=== PATIENT | male | born 1980 | race Caucasian/White ===

== ENCOUNTER 2020-10-24 12:58 | Emergency (ER) | payer OTHER, BC ==
[~2020-10-24] VITALS: Ht 177.8 cm; Wt 115.0 kg
--- NOTE | 2020-10-24 13:48 | RAD ---
AP and Lateral Views of the Chest 10/24/2020 1:25 PM Indication: Reason: SOA - COVID + / Comparison: Chest radiograph October 31, 2010 Findings: There is a large masslike consolidation in projecting over the expected region of the right middle lobe. No pneumothorax or definitive effusion is seen. No acute osseous changes are identified . IMPRESSION: Large masslike consolidation projecting over the expected region of the right middle lobe . Contrast-enhanced CT chest recommended for further evaluation Electronically signed by: Pascual Kessler MD (10/24/2020 1:45 PM) [id number]
[2020-10-24] MEDS ORDERED: IOHEXOL 300 MG/ML 75 ML VIAL. IV ONE (14:00)
[2020-10-24] MEDS ORDERED: CONTRAST GIVEN. MC PRN (14:15)
[2020-10-24 14:29] LABS: BASO % 0 % (0-3); EOS % 0 % (0-3); HEMATOCRIT 49.9 % (39.0-53.0); HEMOGLOBIN 16.7 g/dL (13.0-17.5); LYMPH # 1.1 x10^3/uL (1.0-4.8); LYMPH % 15 % (24-48); MEAN CORPUSCULAR HEMOGLOBIN 29 pg (25-35); MEAN CORPUSCULAR HGB CONC 33 g/dL (31-37); MEAN CORPUSCULAR VOLUME 86 fL (79-100); MONO # 0.6 x10^3/uL (0.0-1.1); MONO % 8 % (0-9); NEUT # 5.9 x10^3uL (1.8-7.7); NEUT % 77 % (31-73); PLATELET COUNT 129 x10^3/uL (140-400); RED CELL DISTRIBUTION WIDTH 13.1 % (11.5-14.5); WHITE BLOOD COUNT 7.7 x10^3/uL (4.0-11.0)
[2020-10-24 14:37] LABS: CREATININE 1.3 mg/dL (0.7-1.3); GFR 61.8
[2020-10-24] MEDS ORDERED: IV NORMAL SALINE 1,000ML 1,000 ML IV ONE (15:00)
--- NOTE | 2020-10-24 15:08 | RAD ---
CT THORAX W History: Reason: rt lung chest mass, covid +, cough, short of air. 75mls omni 300 / Spl. Instructions : / History: Comparison: Chest x-ray 10/24/2020. Technique: CTA of the pulmonary arteries with intravenous contrast. 3-D multiplanar reconstruction is provided. Findings: Pulmonary arteries: No pulmonary embolism. Aorta and great vessels: No aneurysm or dissection of the aortic arch or thoracic aorta is seen. Thyroid: No significant abnormalities. Mediastinum and maura: Large anterior right mediastinal fat collection with vessels tracking back to t he abdomen protruding through a anterior diaphragmatic hernia (Morgagni). The hernia sac measures yaw roximately 15 x 11 x 14 cm with neck at the anterior diaphragm 8.3 x 3.0 cm. A tiny portion of the tr ansverse colon is present at the base of the hernia. Esophagus: The visualized esophagus is normal. Heart: The heart is normal in size. There is no pericardial effusion. Airways, Lungs, Pleura: Clear airways. Bilateral patchy nodular groundglass opacities. No pleural eff usion or pneumothorax. Right middle and upper lobe volume loss with atelectasis/scarring adjacent to large right anterior hernia. Upper abdomen: No acute findings. Osseous structures and soft tissues: Within normal limits for age. Impression: 1. No pulmonary embolism, aortic aneurysm or aortic dissection. 2. Multifocal patchy nodular groundglass opacities compatible with diffuse Covid pneumonia. 3. 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 ------ Exposure: One or more of the following individualized dose reduction techniques were utilized for thi s examination: 1. Automated exposure control 2. Adjustment of the mA and/or kV according to patient size 3. Use of iterative reconstruction technique. Electronically signed by: Romaine Caraballo MD (10/24/2020 3:06 PM) [id number]
--- NOTE | 2020-10-24 15:08 | PHYS DOC ---
Past History Past Surgical History: No Surgical History Adult General Chief Complaint Chief Complaint: SHORTNESS OF BREATH HPI HPI Patient is a 40-year-old male presenting for shortness of breath. Patient reports he had close contact to a known Covid positive individual last week and subsequently got tested 6 days ago at which time he found out he too was positive. Reports he was asymptomatic until 4 days ago when he started developing URI symptoms and shortness of breath. Reports he has history of known abdominal/diaphragmatic hernia for which she takes Protonix and is on an SSRI for mental health issues. He is not vaccinated against COVID-19 because his told him not to get it Review of Systems Review of Systems Fourteen body systems of review of systems have been reviewed. See HPI for pertinent positives and negative responses, other harrison all other systems are negative, non-pertinent or non-contributory Current Medications Current Medications Current Medications Medications (Trade) Dose Ordered Sig/Jose De Jesus Start Time Stop Time Status Last Admin Dose Admin Info (Do NOT chart on this entry -- for MONITORING) 1 each PRN DAILY PRN 10/24/20 14:15 10/26/20 14:14 Iohexol (Omnipaque 300 Mg/ml) 75 ml 1X ONCE 10/24/20 14:00 10/24/20 14:04 DC 10/24/20 14:30 75 ML Sodium Chloride 1,000 ml @ 1,000 mls/hr 1X ONCE 10/24/20 15:00 10/24/20 15:59 UNV Allergies Allergies Allergies Coded Allergies Type Severity Reaction Last Updated Verified amoxicillin Allergy Unknown 10/24/20 Yes Physical Exam Physical Exam Constitutional: Age-appropriate in no acute distress but does appear uncomfortable HENT: Normocephalic, atraumatic, bilateral external ears normal, oropharynx moist, no oral exudates, nose normal. Eyes: PERRLA, EOMI, conjunctiva normal, no discharge. Neck: Normal range of motion, no tenderness, supple, no stridor. Cardiovascular: Heart rate tachycardic, sinus rhythm, no murmurs rubs or gallops Lungs & Thorax: No acute respiratory distress, no accessory muscle use or abdominal retractions noted, speaking in full sentences without issue, there are gross crackles and rhonchi present in right lower lobe on auscultation Abdomen: Bowel sounds normal, soft, no tenderness, no masses, no pulsatile masses. Nonsurgical abdomen, no peritoneal signs Skin: Warm, dry, no erythema, no rash. Back: No tenderness, no CVA tenderness. Extremities: No tenderness, no cyanosis, no clubbing, ROM intact, no edema. Neurologic: Alert and oriented X 3, grossly normal motor & sensory function, no focal deficits noted. Psychologic: Affect normal, judgement normal, mood normal. Current Patient Data Vital Signs Vital Signs Date Time Temp Pulse Resp B/P (MAP) Pulse Ox O2 Delivery O2 Flow Rate FiO2 10/24/20 13:08 100.6 121 20 141/88 93 Room Air Lab Results Laboratory Tests Test 10/24/20 13:51 White Blood Count 7.7 x10^3/uL (4.0-11.0) Red Blood Count 5.80 x10^6/uL (4.30-5.70) H Hemoglobin 16.7 g/dL (13.0-17.5) Hematocrit 49.9 % (39.0-53.0) Mean Corpuscular Volume 86 fL (79-100) Mean Corpuscular Hemoglobin 29 pg (25-35) Mean Corpuscular Hemoglobin Concent 33 g/dL (31-37) Red Cell Distribution Width 13.1 % (11.5-14.5) Platelet Count 129 x10^3/uL (140-400) L Neutrophils (%) (Auto) 77 % (31-73) H Lymphocytes (%) (Auto) 15 % (24-48) L Monocytes (%) (Auto) 8 % (0-9) Eosinophils (%) (Auto) 0 % (0-3) Basophils (%) (Auto) 0 % (0-3) Neutrophils # (Auto) 5.9 x10^3uL (1.8-7.7) Lymphocytes # (Auto) 1.1 x10^3/uL (1.0-4.8) Monocytes # (Auto) 0.6 x10^3/uL (0.0-1.1) Eosinophils # (Auto) 0.0 x10^3/uL (0.0-0.7) Basophils # (Auto) 0.0 x10^3/uL (0.0-0.2) Sodium Level 134 mmol/L (136-145) L Potassium Level 4.0 mmol/L (3.5-5.1) Chloride Level 101 mmol/L (98-107) Carbon Dioxide Level 27 mmol/L (21-32) Anion Gap 6 (6-14) Blood Urea Nitrogen 17 mg/dL (8-26) Creatinine 1.3 mg/dL (0.7-1.3) Estimated GFR (Cockcroft-Gault) 61.8 Glucose Level 105 mg/dL (70-99) H Calcium Level 8.0 mg/dL (8.5-10.1) L EKG EKG EKG ordered and interpreted by myself at 1644 hrs. as sinus tachycardia at 108 bpm, unremarkable intervals, left axis deviation, no acute ischemic findings, no STEMI Radiology/Procedures Radiology/Procedures AP and Lateral Views of the Chest 10/24/2020 1:25 PM Indication: Reason: SOA - COVID + / Comparison: Chest radiograph October 31, 2010 Findings: There is a large masslike consolidation in projecting over the expected region of the right middle lobe. No pneumothorax or definitive effusion is seen. No acute osseous changes are identified. IMPRESSION: Large masslike consolidation projecting over the expected region of the right middle lobe. Contrast-enhanced CT chest recommended for further evaluation Electronically signed by: Pascual Kessler MD (10/24/2020 1:45 PM) [id number] /////////////////////////// CT THORAX W History: Reason: rt lung chest mass, covid +, cough, short of air. 75mls omni 300 / Spl. Instructions: / History: Comparison: Chest x-ray 10/24/2020. Technique: CTA of the pulmonary arteries with intravenous contrast. 3-D multiplanar reconstruction is provided. Findings: Pulmonary arteries: No pulmonary embolism. Aorta and great vessels: No aneurysm or dissection of the aortic arch or thoracic aorta is seen. Thyroid: No significant abnormalities. Mediastinum and maura: Large anterior right mediastinal fat collection with vessels tracking back to the abdomen protruding through a anterior diaphragmatic hernia (Morgagni). The hernia sac measures approximately 15 x 11 x 14 cm with neck at the anterior diaphragm 8.3 x 3.0 cm. A tiny portion of the transverse colon is present at the base of the hernia. Esophagus: The visualized esophagus is normal. Heart: The heart is normal in size. There is no pericardial effusion. Airways, Lungs, Pleura: Clear airways. Bilateral patchy nodular groundglass opacities. No pleural effusion or pneumothorax. Right middle and upper lobe volume loss with atelectasis/scarring adjacent to large right anterior hernia. Upper abdomen: No acute findings. Osseous structures and soft tissues: Within normal limits for age. Impression: 1. No pulmonary embolism, aortic aneurysm or aortic dissection. 2. Multifocal patchy nodular groundglass opacities compatible with diffuse Covid pneumonia. 3. 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 ------ Exposure: One or more of the following individualized dose reduction techniques were utilized for this examination: 1. Automated exposure control 2. Adjustment of the mA and/or kV according to patient size 3. Use of iterative reconstruction technique. Electronically signed by: Romaine Caraballo MD (10/24/2020 3:06 PM) [id number] Heart Score C/O Chest Pain: No HEART Score for Chest Pain: HEART Score for Chest Pain Response (Comments) Value History Slighlty/Non-Suspicious 0 ECG Normal 0 Age < 45 0 Risk Factors No Risk Factors 0 Troponin < Normal Limit 0 Total 0 Risk Factors: Risk Factors: DM, Current or recent (<one month) smoker, HTN, HLP, family his tory of CAD, obesity. Risk Scores: Risk Factors: DM, Current or recent (<one month) smoker, HTN, HLP, family history of CAD, obesity. Course & Med Decision Making Course & Med Decision Making Airway patent, breathing unlabored, IV access and vitals obtained concerning for fever and tachycardia HPI and physical examination concerning in a known Covid positive individual. Diagnostic ER work-up nonconcerning for any emergent or surgical issues. IV fluid rehydration, Tylenol, and IV antibiotics administered, all were tolerated well while in ER setting I discussed most likely diagnosis of known COVID-19 infection with right lower lobe pneumonia in an unvaccinated individual. No indication for hospital ad mission and/or need for transfer or other diagnostic work-up or intervention in ER setting Joint decision made to start azithromycin and Keflex on departure home. Continued self quarantine and supportive care advised with close outpatient follow-up advised when safe to do so Strict return precautions discussed with good understanding by patient, all questions and concerns addressed prior to your departure Virginie Disclaimer Virginie Disclaimer This electronic medical record was generated, in whole or in part, using a voice recognition dictation system. Departure Departure: Impression: Primary Impression: COVID-19 Additional Impression: RLL pneumonia Disposition: HOME / SELF CARE / HOMELESS Condition: STABLE Referrals: PCP,NO (PCP) Additional Instructions: You were seen for known COVID-19 infection and subsequent right lower lobe pneumonia. You were given IV fluids and IV antibiotics while in the ER. At present, there is no immediate indication for hospital admission for your condition and a trial of outpatient antibiotics while home self quarantined is advised. You should return to the ED if you develop worsening cough, shortness of breath, chest pain, or any other new or concerning symptoms. Alternate Tylenol and ibuprofen as needed for body aches and pain. You should make sure to drink plenty of fluids and get plenty of rest. Scripts Cephalexin (KEFLEX) 500 Mg Capsule 1 CAP PO BID for pneumonia, #20 CAP Prov: KAR GORDON DO 10/24/20 Azithromycin (AZITHROMYCIN TABLET) 250 Mg Tablet 250 MG PO DAILY for ANTI-BIOTIC for 4 Days, #4 TAB 0 Refills Prov: KAR GORDON DO 10/24/20 Problem Qualifiers KAR GORDON DO Oct 24, 2020 15:08
[2020-10-24] MEDS ORDERED: AZITHROMYCIN 500 MG in IV NORMAL SALINE 250ML 250 ML IV ONE (15:15)
[2020-10-24] MEDS ORDERED: ACETAMINOPHEN 325 MG TABLET PO ONE (15:15)
[2020-10-24] MEDS ORDERED: cefTRIAXone SODIUM 1 GM VIAL ONE (15:16)
[2020-10-24] MEDS ORDERED: AZITHROMYCIN 500 MG VIAL. IV ONE (15:16)
[2020-10-24] MEDS ORDERED: IV NORMAL SALINE 50ML 50 ML ONE (15:18)
[2020-10-24] MEDS ORDERED: IV NORMAL SALINE 250ML 250 ML ONE (15:18)
[2020-10-24] MEDS ORDERED: AZIT250T6 PO (15:35)
[2020-10-24] MEDS ORDERED: CEPH500C PO (15:37)
--- NOTE | 2020-10-24 16:47 | EKG ---
[address] [address] Test Date: 2020-10-24 Test Time: 16:24:18 Pat Name: LUANNE HUMPHREY Department: Room: Gender: M Twisthand: ABHIJIT : 1980 Requested By: KAR GORDON Order Number: [id number] Reading MD: Measurements Intervals [place] Rate: 108 P: 39 HI: 130 QRS: -9 QRSD: 86 T: 6 QT: 298 QTc: 403 Interpretive Statements SINUS TACHYCARDIA LEFTWARD AXIS R-S TRANSITION ZONE IN V LEADS DISPLACED TO THE LEFT OTHERWISE NORMAL ECG RI6.02 No previous ECG available for comparison
[2020-10-24 17:16] VITALS: BP 118/72
== END 2020-10-24 17:17 | disposition home or self-care (01) ==
LOC: ER 12:58
DX: U07.1 COVID-19 (principal); J12.82 Pneumonia due to coronavirus disease 2019; Z88.0 Allergy status to penicillin
CPT/HCPCS: 36415; 71046; 71260; 80048; 85025; 93005; 96365; 96368; 99285; J0456; J0696; J7030; J7050; Q9967

== ENCOUNTER 2020-10-27 10:21 | Inpatient (IN) | payer OTHER, BC ==
[~2020-10-27] VITALS: Ht 177.8 cm; Wt 119.0 kg
[~2020-10-27 10:21] MED LIST: AZIT250T6 PO; CEPH500C PO
--- NOTE | 2020-10-27 10:41 | PHYS DOC ---
Past History Past Surgical History: No Surgical History (LAVON RUIZ APRN) Alcohol Use: None (LAVON RUIZ APRN) General Adult EDM: Chief Complaint: SHORTNESS OF BREATH HPI: HPI: Patient is a 40-year-old male being seen in the ER for shortness of breath. Patient is Covid positive. Patient was seen in this ER 2 days prior and diagnosed with right lower lobe infiltrates and was treated with an antibiotic. At that time the remainder of his work-up was unremarkable in the ER. Patient is also reporting cough, chest wall pain, fevers, fatigue. (LAVON RUIZ APRN) Review of Systems: Review of Systems: 14 body systems of the review of systems have been reviewed. See HPI for pertinent positive and negative responses, otherwise all other systems are negative, nonpertinent or noncontributory (LAVON RUIZ APRN) Current Medications: Current Meds: Current Medications Medications (Trade) Dose Ordered Sig/Jose De Jesus Start Time Stop Time Status Last Admin Dose Admin Dexamethasone Sodium Phosphate (Decadron) 10 mg 1X ONCE 10/27/20 10:45 10/27/20 10:46 UNV Sodium Chloride 1,000 ml @ 1,000 mls/hr 1X ONCE 10/27/20 10:45 10/27/20 11:44 UNV (LAVON RUIZ APRN) Allergies: Allergies: Allergies Coded Allergies Type Severity Reaction Last Updated Verified amoxicillin Allergy Unknown 10/24/20 Yes (LAVON RUIZ APRN) Physical Exam: PE: Constitutional: Well developed, well nourished, no acute distress, non-toxic appearance. [] HENT: Normocephalic, atraumatic, bilateral external ears normal, oropharynx moist, no oral exudates, nose normal. [] Eyes: PERRL, EOMI, conjunctiva normal, no discharge. [] Neck: Normal range of motion, no stridor Cardiovascular:Heart rate tachycardic rhythm, no murmur [] Lungs & Thorax: Bilateral breath sounds clear to auscultation, hypoxic Abdomen: Bowel sounds normal, soft, no tenderness, no masses, no pulsatile masses. [] Skin: Warm, dry, no erythema, no rash. [] Back: Normal range of motion Extremities: No tenderness, no cyanosis, no clubbing, ROM intact, no edema. [] Neurologic: Alert and oriented X 3, normal motor function, normal sensory function, no focal deficits noted. [] Psychologic: Affect normal, judgement normal, mood normal. [] (LAVON RUIZ APRN) Current Patient Data: Labs: Laboratory Tests Test 10/27/20 10:41 White Blood Count 9.8 x10^3/uL Red Blood Count 5.06 x10^6/uL Hemoglobin 14.7 g/dL Hematocrit 42.6 % Mean Corpuscular Volume 84 fL Mean Corpuscular Hemoglobin 29 pg Mean Corpuscular Hemoglobin Concent 35 g/dL Red Cell Distribution Width 13.0 % Platelet Count 123 x10^3/uL Neutrophils (%) (Auto) 88 % Lymphocytes (%) (Auto) 9 % Monocytes (%) (Auto) 4 % Eosinophils (%) (Auto) 0 % Basophils (%) (Auto) 0 % Neutrophils # (Auto) 8.5 x10^3uL Lymphocytes # (Auto) 0.8 x10^3/uL Monocytes # (Auto) 0.3 x10^3/uL Eosinophils # (Auto) 0.0 x10^3/uL Basophils # (Auto) 0.0 x10^3/uL Sodium Level 139 mmol/L Potassium Level 3.6 mmol/L Chloride Level 102 mmol/L Carbon Dioxide Level 26 mmol/L Anion Gap 11 Blood Urea Nitrogen 12 mg/dL Creatinine 1.0 mg/dL Estimated GFR (Cockcroft-Gault) 83.6 BUN/Creatinine Ratio 12 Glucose Level 110 mg/dL Lactic Acid Level 1.2 mmol/L Calcium Level 7.9 mg/dL Total Bilirubin 0.5 mg/dL Aspartate Amino Transf (AST/SGOT) 52 U/L Alanine Aminotransferase (ALT/SGPT) 40 U/L Alkaline Phosphatase 76 U/L Troponin I Quantitative < 0.017 ng/mL Total Protein 6.3 g/dL Albumin 3.0 g/dL Albumin/Globulin Ratio 0.9 Current Medications Medications (Trade) Dose Ordered Sig/Jose De Jesus Route PRN Reason Start Time Stop Time Status Last Admin Dose Admin Sodium Chloride 1,000 ml @ 1,000 mls/hr 1X ONCE IV 10/27/20 10:45 10/27/20 11:44 DC 10/27/20 10:56 Dexamethasone Sodium Phosphate (Decadron) 10 mg 1X ONCE IVP 10/27/20 10:45 10/27/20 10:46 DC 10/27/20 10:57 Iohexol (Omnipaque 350 Mg/ml) 100 ml 1X ONCE IV 10/27/20 11:00 10/27/20 11:06 DC 10/27/20 11:23 Vital Signs: Vital Signs Date Time Temp Pulse Resp B/P (MAP) Pulse Ox O2 Delivery O2 Flow Rate FiO2 10/27/20 10:33 98.5 107 22 129/74 71 Room Air (LAVON RUIZ JOURNALISM INTERN) EKG: EKG: EKG performed by ER staff at 1056 shows sinus rhythm at a rate of 96, no STEMI read by Dr. Stevens at 1105. [] (LAVON RUIZ JOURNALISM INTERN) Radiology/Procedures: Radiology/Procedures: PROCEDURE: CT ANGIOGRAPHY CHEST CT arteriogram of the chest. HISTORY: Hypoxia, tachycardia, Covid 19 positive due to technical difficulties patient was injected twice for a total of 175 mL Omnipaque 350 contrast. Unfortunately the contrast opacification is better in the pulmonary veins and aorta within in the pulmonary arteries which limits the study. There is no mediastinal adenopathy. There is a trace of pleural effusion on each side. The upper aspect of liver and spleen are unremarkable. There is a large anterior diaphragmatic hernia with mesentery along the right side of the heart. There are bilateral diffuse infiltrates consistent with Covid 19 pneumonia, there is been worsening in the infiltrates compared to the prior study. There is no aortic aneurysm or dissection. There is no segmental or central pulmonary embolus. The subsegmental vessels are not accurately evaluated on this study. There is mild motion artifact. Visualized portions liver and spleen are unremarkable. There is mild scoliosis. Sagittal and coronal MIP images were reconstructed. IMPRESSION: 1. No central or segmental pulmonary embolus noted, peripheral vessels more difficult to evaluate. 2. Worsening bilateral infiltrates. 3. Largest anterior diaphragmatic hernia. 4. Trace of pleural effusion on each side. PQRS Compliance Statement: One or more of the following individualized dose reduction techniques were utilized for this examination: 1. Automated exposure control 2. Adjustment of the mA and/or kV according to patient size 3. Use of iterative reconstruction technique Electronically signed by: Guerrero Lindquist MD (10/27/2020 12:19 PM) [id number] DICTATED AND SIGNED BY: GUERRERO LINDQUIST MD DATE: 10/27/20 1210 CC: CHASE MILES MD; LAVON RUIZ APRN ~MTH0 0[] (LAVON RUIZ APRN) Heart Score: C/O Chest Pain: No Risk Factors: Risk Factors: DM, Current or recent (<one month) smoker, HTN, HLP, family his tory of CAD, obesity. Risk Scores: Score 0 - 3: 2.5% MACE over next 6 weeks - Discharge Home Score 4 - 6: 20.3% MACE over next 6 weeks - Admit for Clinical Observation Score 7 - 10: 72.7% MACE over next 6 weeks - Early Invasive Strategies (LAVON RUIZ APRN) Course & Med Decision Making: Course & Med Decision Making Pertinent Labs and Imaging studies reviewed. (See chart for details) Patient is a 40-year-old male being seen in the ER for increased shortness of breath after COVID-19 gnosis. On room air patient was noted to be 71% after exertion. He was placed on 3 L and is currently 91%. Work-up in the ER consisted of blood work, CT angio to rule out PE and an EKG. blood work was u nremarkable. CTA showed worsening of bilateral infiltrates and mild pleural effusions. Treated with dexamethasone and antibiotics in the ER. I spoke to Dr. Jiménez who agreed to admit patient under his service for COVID-19 pneumonia. Patient will be admitted to this facility for hypoxia and COVID-19 pneumonia. Care transferred at this time 1237. (LAVON RUIZ APRN) Course & Med Decision Making I was the Attending physician on the above date of service of this patient. This patient was evaluated, examined, treated, and dispositioned from the emergency department by the mid-level practitioner. Patient hypoxic secondary to Covid pneumonia. Unfit for discharge planning and will require hospital admission. Critical Care Time This patient required critical care. Due to the fact that the patient required a significant amount of one on one physician - patient contact time, ordering and review of studies, arranging urgent treatment with development of a management plan, evaluation of patients response to treatment with frequent reassessments, and discussions with other providers this patient required 35 minutes of critical care time. Critical care time was indicated due to the inherent instability and/or potential for instability in this patient. The critical care time that is allocated to this patient is above and beyond any time spent on any other billable procedures performed on this patient. Electronically signed, Kar Gordon DO (KAR GORDON DO) Virginie Disclaimer: Virginie Disclaimer: This electronic medical record was generated, in whole or in part, using a voice recognition dictation system. (LAVON RUIZ APRN) Departure Departure: Impression: Primary Impression: Pneumonia due to COVID-19 virus Additional Impression: Hypoxia Disposition: ADMITTED INPATIENT Admitting Physician: Devika Cordero (LAVON RUIZ APRN) Condition: STABLE Referrals: CHASE MILES MD (PCP) LAVON RUIZ APRN Oct 27, 2020 10:41 KAR GORDON DO Oct 29, 2020 12:53
[2020-10-27] MEDS ORDERED: IV NORMAL SALINE 1,000ML 1,000 ML IV ONE (10:45)
[2020-10-27] MEDS ORDERED: DEXAMETHASONE SOD PHOS 10 MG/ML VIAL. IVP ONE (10:45)
[2020-10-27] MEDS ORDERED: IOHEXOL 350 MG/ML 100 ML VIAL. IV ONE (11:00)
--- NOTE | 2020-10-27 11:07 | EKG ---
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
[2020-10-27 11:10] LABS: BASO % 0 % (0-3); EOS % 0 % (0-3); HEMATOCRIT 42.6 % (39.0-53.0); HEMOGLOBIN 14.7 g/dL (13.0-17.5); LYMPH # 0.8 x10^3/uL (1.0-4.8); LYMPH % 9 % (24-48); MEAN CORPUSCULAR HEMOGLOBIN 29 pg (25-35); MEAN CORPUSCULAR HGB CONC 35 g/dL (31-37); MEAN CORPUSCULAR VOLUME 84 fL (79-100); MONO # 0.3 x10^3/uL (0.0-1.1); MONO % 4 % (0-9); NEUT # 8.5 x10^3uL (1.8-7.7); NEUT % 88 % (31-73); PLATELET COUNT 123 x10^3/uL (140-400); RED BLOOD COUNT 5.06 x10^6/uL (4.30-5.70); WHITE BLOOD COUNT 9.8 x10^3/uL (4.0-11.0)
[2020-10-27 11:11] LABS: CALCIUM 7.9 mg/dL (8.5-10.1); GFR 83.6; POTASSIUM 3.6 mmol/L (3.5-5.1)
[2020-10-27 11:17] LABS: ALBUMIN/GLOBULIN RATIO 0.9 (1.0-1.7); TOTAL BILIRUBIN 0.5 mg/dL (0.2-1.0); TOTAL PROTEIN 6.3 g/dL (6.4-8.2)
--- NOTE | 2020-10-27 12:21 | RAD ---
CT arteriogram of the chest. HISTORY: Hypoxia, tachycardia, Covid 19 positive due to technical difficulties patient was injected t wice for a total of 175 mL Omnipaque 350 contrast. Unfortunately the contrast opacification is better in the pulmonary veins and aorta within in the pulmonary arteries which limits the study. There is n o mediastinal adenopathy. There is a trace of pleural effusion on each side. The upper aspect of live r and spleen are unremarkable. There is a large anterior diaphragmatic hernia with mesentery along th e right side of the heart. There are bilateral diffuse infiltrates consistent with Covid 19 pneumonia , there is been worsening in the infiltrates compared to the prior study. There is no aortic aneurysm or dissection. There is no segmental or central pulmonary embolus. The subsegmental vessels are not accurately evaluated on this study. There is mild motion artifact. Visualized portions liver and spleen are unremarkable. There is mild scoliosis. Sagittal and coronal MIP images were reconstructed. IMPRESSION: 1. No central or segmental pulmonary embolus noted, peripheral vessels more difficult to evaluate. 2. Worsening bilateral infiltrates. 3. Largest anterior diaphragmatic hernia. 4. Trace of pleural effusion on each side. PQRS Compliance Statement: One or more of the following individualized dose reduction techniques were utilized for this examinat ion: 1. Automated exposure control 2. Adjustment of the mA and/or kV according to patient size 3. Use of iterative reconstruction technique Electronically signed by: Guerrero Lindquist MD (10/27/2020 12:19 PM) [id number]
[2020-10-27 15:27] VITALS: BP 126/87
--- NOTE | 2020-10-27 15:47 | NUR ---
The patient, LUANNE HUMPHREY, 40 y/o, M admitted by ISELA BOUDREAUX MD, was given written information regarding hospital policies, unit procedures and contact persons. Valuables were checked and left with patient at bedside. Pt was placed on 3 L NC and pt changed into a gown.
[2020-10-27] MEDS ORDERED: PANTOPRAZOLE IV 40 MG VIAL. IVP ONE (16:15)
[2020-10-27] MEDS: ENOXAPARIN 40 MG/0.4 ML SYRINGE. SQ SCH (16:58)
[2020-10-27] MEDS: DEXAMETHASONE SOD PHOS 10 MG/ML VIAL. IVP SCH (17:00)
--- NOTE | 2020-10-27 17:07 | HP ---
ADMIT DATE: 10/27/2020 HISTORY OF PRESENT ILLNESS: The patient is a 40-year-old male patient who came to the Emergency Room with a complaint of shortness of breath, cough with brownish dark brown sputum. His symptoms started about more than a week ago. At that time, he has mild symptoms and tested positive for COVID. At that time, he has fever, chills, some sinus drainage and last 4 days ago, he was seen in the Emergency Room, was treated with IV antibiotic and discharged home on oral Zithromax and was told to monitor his home oxygen. This morning when he woke up, his oxygen saturation was only 70% on room air and therefore, he came to the Emergency Room for further evaluation and treatment. His lab work was unremarkable except for thrombocytopenia, has had a CT angio of the chest, which basically showed no central or segmental pulmonary emboli noted and peripheral pulses were difficult to evaluate. He has worsening bilateral infiltrate, largest anterior diaphragmatic hernia and trace of pleural effusion on each side and was admitted to continue treatment with IV antibiotic, dexamethasone, remdesivir and Lovenox. PAST MEDICAL HISTORY: Significant for a large hiatal hernia and depression. PAST SURGICAL HISTORY: Unremarkable. ALLERGIES: HE IS ALLERGIC TO AMOXICILLIN. MEDICATIONS: He is currently on Protonix and Lexapro. FAMILY HISTORY: One brother older and healthy. One much younger sister. Both parents are alive and healthy. SOCIAL HISTORY: He is , has 1 daughter. He never smoked, does not drink alcohol or recreational drugs. 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 REVIEW OF SYSTEMS: As per history of present illness. PHYSICAL EXAMINATION: GENERAL: When I examined him on arrival to the ICU, he looked well and was clearly in no apparent respiratory distress. There is no pallor, jaundice, cyanosis, no lymphadenopathy, no thyromegaly, no jugular venous distention. No limb edema. VITAL SIGNS: His heart rate was 75, blood pressure was 126/87, temperature was 98.7, respiratory rate was 18 and oxygen saturation was 95% on 3 liters of oxygen via nasal cannula. HEAD, EYES, EARS, NOSE, AND THROAT: Normocephalic, atraumatic. NECK: Supple. HEART: Showed normal first and second heart sounds, no gallop, rub or murmur. CHEST: Clear to auscultation, no crepitation or rhonchi. ABDOMEN: Distended, soft, nontender. NEUROLOGIC: He was grossly intact. LABORATORY DATA: His lab work showed a white cell count of 9800, hemoglobin 14.7, hematocrit 42, MCV 84 and platelet count of 123,000 with a manual differential showed 88% polymorphs, 9% lymphocytes and 4% monocytes. Serum sodium was 139, potassium 3.6, chloride 102, bicarbonate 26, anion gap of 11, BUN 12, creatinine 1, estimated GFR was 83 mL per minute. Her glucose was 110. Lactic acid was 1.2, calcium was 7.9. Total bilirubin, AST, ALT, alkaline phosphatase were normal. Total protein 6.3, albumin 3, CT scan and CT angio of the chest showed that patient has no central or segmental pulmonary emboli, worsening bilateral infiltrate and large anterior diaphragmatic hernia. ASSESSMENT AND PLAN: The patient was admitted with acute hypoxic respiratory failure, COVID-19 pneumonia, questionable superimposed community-acquired pneumonia. The patient was started on IV Levaquin, dexamethasone. We will add remdesivir, Lovenox and monitor his response gradually. JOSEPHINE DR: Max TID: [id number]
[2020-10-27] MEDS ORDERED: REMDESIVIR LOAD in IV NORMAL SALINE 250ML TV IV ONE (18:00)
[2020-10-27] MEDS ORDERED: IPRATRPIUM/ALBUTEROL 0.5/2.5MG 3 ML NEBU. NEB ONE (18:30)
[2020-10-27] MEDS ORDERED: BUDESONIDE 0.5 MG/2 ML NEBU NEB ONE (18:30)
[2020-10-27 19:15] VITALS: BP 127/76
[2020-10-27 20:10] VITALS: BP 123/76
[2020-10-27 21:00] VITALS: BP 121/74
[2020-10-27] MEDS: IPRATROPIUM/ALBUTEROL 20/100mcg/INH INHALER. INH SCH (21:44)
[2020-10-27 22:00] VITALS: BP 112/66
[2020-10-28] VITALS (8 sets, daily range): BP systolic 103–120; BP diastolic 57–72
--- NOTE | 2020-10-28 06:15 | NUR ---
Pt awake in bed at change of shift watching TV and talking to - Isa on cell phone. Pt A&Ox4, pleasant and cooperative with care. Pt picked at HS snack, poor appetite. Pt up to bathroom for BM at around 0330, O2 sat dropped into upper 70's to lower 80's with exertion and coughing spell. supplemental O2 increased to 9L high flow NC. Pt assisted back to bed and recovered back into lower 90's. Pt is tearful at times, expressed concern and fear of dying. Pt hardly slept during shift, about 45 minute increments at a time.
[2020-10-28 06:19] LABS: HEMATOCRIT 43.5 % (39.0-53.0); HEMOGLOBIN 14.8 g/dL (13.0-17.5); RED BLOOD COUNT 5.2 x10^6/uL (4.30-5.70); RED CELL DISTRIBUTION WIDTH 13.1 % (11.5-14.5); WHITE BLOOD COUNT 6.4 x10^3/uL (4.0-11.0)
[2020-10-28 06:38] LABS: ALBUMIN 2.7 g/dL (3.4-5.0); ALBUMIN/GLOBULIN RATIO 0.7 (1.0-1.7); CALCIUM 8.4 mg/dL (8.5-10.1); GFR 83.6; POTASSIUM 3.6 mmol/L (3.5-5.1); TOTAL BILIRUBIN 0.4 mg/dL (0.2-1.0); TOTAL PROTEIN 6.8 g/dL (6.4-8.2)
[2020-10-28] MEDS: IPRATROPIUM/ALBUTEROL 20/100mcg/INH INHALER. INH SCH ×4 (08:00→20:39)
[2020-10-28] MEDS ORDERED: DEXAMETHASONE SOD PHOS 4 MG/ML VIAL. IVP SCH (09:00)
[2020-10-28] MEDS: PANTOPRAZOLE IV 40 MG VIAL. IVP SCH (09:08)
[2020-10-28] MEDS: DEXAMETHASONE SOD PHOS 10 MG/ML VIAL. IVP SCH (09:08)
[2020-10-28] MEDS ORDERED: BUDESONIDE 0.5 MG/2 ML NEBU NEB ONE (12:30)
[2020-10-28] MEDS: ENOXAPARIN 40 MG/0.4 ML SYRINGE. SQ SCH (16:42)
--- NOTE | 2020-10-28 17:26 | NUR ---
Pt resting comfortably throughout day. Up to BSC and chair today. Pt O2 demand from 9l NC to 5lNC. Poor appetite for breakfast and lunch but ate some dinner. IV antibiotics infusing, will continue to monitor. CC, RN
[2020-10-28] MEDS: REMDESIVIR 100mg in NORMAL SALINE 250ML X 4 DAYS IV SCH (18:20)
[2020-10-28] MEDS: MELATONIN 3 MG TABLET PO PRN (21:02)
[2020-10-29] VITALS (8 sets, daily range): BP systolic 109–119; BP diastolic 50–76
--- NOTE | 2020-10-29 00:34 | PN ---
DATE: 10/28/2020 SUBJECTIVE: The patient is resting almost flat in bed, seems to be comfortable, in no apparent respiratory distress. On questioning him, he continued to have some cough with brownish sputum. Stated that he continue to obviously desaturates with minimal exertion. His oxygen requirement has increased to 7 liters per minute and has been up to 9 and when I saw him, he was actually on 8 liters per minute, maintaining his oxygen saturation to about 91% on 8 liters of oxygen. Appetite continues to be poor. PHYSICAL EXAMINATION: GENERAL: When I examined him, he was resting comfortably. There was no pallor, jaundice, cyanosis or thyromegaly. No jugular venous distention. No limb edema. VITAL SIGNS: Her heart rate was 85, blood pressure is 120/70, temperature was 98.6, respiratory rate was 19 and oxygen saturation was 94% on 8 liters of oxygen. HEAD, EYES, EARS, NOSE, AND THROAT: Normocephalic, atraumatic. NECK: Supple. HEART: Normal first and second heart sounds, no gallop, rub or murmur. CHEST: Clear to auscultation. No crepitation or rhonchi. ABDOMEN: Distended, soft, nontender. NEUROLOGIC: He was grossly intact. His intake was 1450. No output was recorded. LABORATORY DATA: Showed a white cell count 6400, hemoglobin 14.8, hematocrit 44, MCV 84 and platelet count of 140,000. His chemistry showed serum sodium 139, potassium 3.6, chloride 104, bicarbonate 25, anion gap of 10, BUN 16, creatinine 1. Estimated GFR was 84 mL per minute. His glucose 136, calcium was 8.4. Total bilirubin, AST, ALT, alkaline phosphatase were normal. Total protein was 6.8, albumin 2.7. His D-dimer was 0.53. His CT angio showed no evidence of central or segmental pulmonary emboli; however, he has worsening bilateral infiltrate, large anterior diaphragmatic hernia. ASSESSMENT: Acute hypoxic respiratory failure with worsening oxygen requirement. COVID-19 pneumonia, possibly superimposed bacterial pneumonia. PLAN: My plan is obviously to continue with empirical IV antibiotic, dexamethasone and remdesivir as well as Lovenox. CHAZ DR: Max TID: [id number]
[2020-10-29] MEDS: IPRATROPIUM/ALBUTEROL 20/100mcg/INH INHALER. INH SCH ×4 (08:00→20:25)
[2020-10-29] MEDS: DEXAMETHASONE SOD PHOS 10 MG/ML VIAL. IVP SCH (09:03)
[2020-10-29] MEDS: PANTOPRAZOLE IV 40 MG VIAL. IVP SCH (09:03)
[2020-10-29] MEDS: ZINC SULFATE 220 MG CAPSULE. PO SCH (09:04)
[2020-10-29] MEDS: ASCORBIC ACID 1,000 MG TABLET PO SCH (09:04)
[2020-10-29] MEDS: ENOXAPARIN 40 MG/0.4 ML SYRINGE. SQ SCH (16:14)
--- NOTE | 2020-10-29 17:17 | NUR ---
SHIFT NOTE Pt resting comfortably throughout shift. Pt up to chair most of day and able to titrate from 4L NC to 3L NC. Pt able to stand and ambulate to BSC without desating. Improved appetite from yesterday's shift. Pt hopeful to be off O2 and return home soon. Will continue to monitor. CC, RN
[2020-10-29] MEDS: REMDESIVIR 100mg in NORMAL SALINE 250ML X 4 DAYS IV SCH (18:15)
[2020-10-29] MEDS: MELATONIN 3 MG TABLET PO PRN (20:25)
--- NOTE | 2020-10-30 01:13 | PN ---
DATE: 10/29/2020 SUBJECTIVE: The patient is sitting in his chair comfortably, in no apparent respiratory distress. He is feeling much better. He is now maintaining his oxygen saturation at 94-97% on 4 liters of oxygen, had had cough with scant sputum. Denied any chest pain. He denied any chills, rigors or fever. PHYSICAL EXAMINATION: GENERAL: When I examined him, he looked well and was clearly in no apparent respiratory distress. No pallor, jaundice, cyanosis or thyromegaly. No jugular venous distention. No limb edema. VITAL SIGNS: Her heart rate was 81, blood pressure was 111/50, temperature was 96.4, respiratory rate was 21, and oxygen saturation was 97% on 4 liters of oxygen. HEAD, EYES, EARS, NOSE, AND THROAT: Normocephalic, atraumatic. NECK: Supple. HEART: Showed normal first and second heart sounds, no gallop or murmur. CHEST: Shows central trachea, equal bilateral expansion, air entry, vesicular breath sounds with bilateral basal crepitation. I could not really appreciate any rhonchi. ABDOMEN: Distended, soft, nontender. NEUROLOGIC: He was grossly intact. His intake over the last 24 hours was 1450, no output was recorded. LABORATORY DATA: His lab works showed a white cell count 6400, hemoglobin 14.8, hematocrit 43.5, MCV 84, and platelet count of 140,000. His chemistry showed a serum sodium 139, potassium 3.6, chloride is 104, bicarbonate 25, anion gap of 10, BUN 16, creatinine 1, estimated GFR was 84 mL per minute. His glucose 136, calcium was 8.4. Total bilirubin, AST, ALT, alkaline phosphatase were normal. His total protein was 6.8, albumin 2.7. His D-dimer was only 0.53. ASSESSMENT: 1. Acute hypoxic respiratory failure. 2. COVID-19 pneumonia, possible superimposed bacterial pneumonia. PLAN: The patient seems to be doing much better now. His oxygen requirement is much less than yesterday. Plan is to continue with oxygen supplementation, titrate down as tolerated. Continue with IV antibiotic, IV dexamethasone, as well as remdesivir and Lovenox. PARADISE/EMILY DR: Max TID: [id number]
[2020-10-30 05:50] VITALS: BP 117/76
--- NOTE | 2020-10-30 05:55 | NUR ---
Pt awake sitting up in chair at change of shift watching TV and talking to . Pt stated that he sent most of the day up to the chair and was able to move around a little bit better today. Pt A&Ox4, pleasant and cooperative with care. Pt refused HS snack but did state that his appetite was better today, ate a good dinner. Pt took Melatonin at HS, slept better than previous night, did need supplemental O2 increased to 3L NC when sleeping soundly. Pt is hopeful fo DC home after completing 2 more days of Remdesivir.
[2020-10-30] MEDS: ASCORBIC ACID 1,000 MG TABLET PO SCH (08:55)
[2020-10-30] MEDS: ZINC SULFATE 220 MG CAPSULE. PO SCH (08:56)
[2020-10-30] MEDS: DEXAMETHASONE SOD PHOS 10 MG/ML VIAL. IVP SCH (08:56)
[2020-10-30] MEDS: PANTOPRAZOLE IV 40 MG VIAL. IVP SCH (08:56)
[2020-10-30] MEDS: IPRATROPIUM/ALBUTEROL 20/100mcg/INH INHALER. INH SCH ×5 (08:57→20:14)
[2020-10-30] MEDS ORDERED: MELA3TAB43 PO (09:54)
[2020-10-30] MEDS ORDERED: CETI10TA74 PO (09:54)
[2020-10-30] MEDS ORDERED: PANT40GR PO (09:54)
[2020-10-30] MEDS ORDERED: LEXAPRO5 MG PO (09:54)
[2020-10-30 11:00] VITALS: BP 105/73
[2020-10-30] MEDS: CITALOPRAM 10 MG TABLET. PO SCH (14:05)
[2020-10-30] MEDS: CETIRIZINE HCL 10 MG TABLET PO PRN (14:06)
[2020-10-30 15:00] VITALS: BP 105/73
[2020-10-30] MEDS: ENOXAPARIN 40 MG/0.4 ML SYRINGE. SQ SCH (17:24)
[2020-10-30] MEDS: REMDESIVIR 100mg in NORMAL SALINE 250ML X 4 DAYS IV SCH ×2 (17:30→20:13)
[2020-10-30 18:20] VITALS: BP 120/67
[2020-10-30 19:35] VITALS: BP 104/67
[2020-10-30] MEDS: MELATONIN 3 MG TABLET PO SCH (20:14)
[2020-10-30 22:00] VITALS: BP 120/76
--- NOTE | 2020-10-31 02:20 | PN ---
DATE: 10/30/2020 ATTENDING PHYSICIAN: Dr. Cordero. SUBJECTIVE: Feeling better. He is comfortable. We have his oxygen requirements down to 2 liters by nasal cannula. OBJECTIVE FINDINGS: VITAL SIGNS: Blood pressure this morning is 117/76 mmHg. He is afebrile. HEENT: Head is without trauma. Pupils are reactive. Sclerae nonicteric. Oropharynx is clear. NECK: Supple. LUNGS: Good breath sounds. CARDIOVASCULAR: Showed regular heart tones. No gallops. ABDOMEN: Soft. EXTREMITIES: Without edema. NEUROLOGIC FUNCTION: Focally intact. ASSESSMENT: 1. A 40-year-old gentleman with bilateral COVID pneumonia. 2. Acute respiratory failure, improving. 3. Hypoxemia, improving. 4. History of depression with anxiety. PLAN: 1. Continue remdesivir as ordered. 2. Home meds restarted. 3. Diet as tolerated. 4. We are weaning down oxygen requirements. At this time, he is maintaining 90% saturations while I am in the room just on room air. Tentative discharge for tomorrow. He ____ 5 days of IV remdesivir. KALEN/LUCIANO/SANJUANA DR: KALEN/tiffanie TID: [id number] CC: CHASE MILES
[2020-10-31 06:25] VITALS: BP 114/80
[2020-10-31] MEDS: IPRATROPIUM/ALBUTEROL 20/100mcg/INH INHALER. INH SCH ×4 (08:00→20:47)
[2020-10-31] MEDS ORDERED: CITALOPRAM 20 MG TABLET. PO SCH (09:00)
[2020-10-31] MEDS: DEXAMETHASONE SOD PHOS 10 MG/ML VIAL. IVP SCH (09:15)
[2020-10-31] MEDS: PANTOPRAZOLE IV 40 MG VIAL. IVP SCH (09:15)
[2020-10-31] MEDS: ZINC SULFATE 220 MG CAPSULE. PO SCH (09:16)
[2020-10-31] MEDS: ASCORBIC ACID 1,000 MG TABLET PO SCH (09:16)
[2020-10-31 11:55] VITALS: BP 114/80
--- NOTE | 2020-10-31 13:48 | PN ---
DATE: 10/31/2020 ATTENDING PHYSICIAN: Dr. Cordero. SUBJECTIVE: Feeling better. He is less dyspneic; however, he is still requiring supplemental oxygen in low dose 2-3 liters to maintain saturations above 90%. OBJECTIVE FINDINGS: VITAL SIGNS: Blood pressure this morning is 114/80 mmHg, pulse is 57 and regular. He is afebrile. Oxygen saturation is 95% on 3 liters by nasal cannula. HEENT: Head is without trauma. Pupils are reactive. Sclerae are nonicteric. Oropharynx is clear. NECK: Supple, no bruits identified. LUNGS: Good breath sounds without any wheezing, rales or rhonchi. CARDIOVASCULAR: Showed regular heart tones. ABDOMEN: Soft. No guarding. EXTREMITIES: Without edema. NEUROLOGIC FINDINGS: Focally intact. Speech is fluent. SKIN: Warm and dry. ASSESSMENT: 1. A 40-year-old gentleman with bilateral COVID pneumonia. 2. Acute hypoxemic respiratory failure, improving. 3. Hypoxemia, improving. 4. History of depression with anxiety. PLAN: 1. Finish course of remdesivir, today is day #5. 2. Home meds restarted. 3. Diet as tolerated. 4. We are weaning down his oxygen requirements. Hopefully, we can get him discharged tomorrow morning. GABRIELA DR: Kris TID: [id number]
[2020-10-31 16:00] VITALS: BP 109/70
[2020-10-31] MEDS: ENOXAPARIN 40 MG/0.4 ML SYRINGE. SQ SCH (16:01)
--- NOTE | 2020-10-31 17:17 | NUR ---
NURSING PT IS A&O X 4, ABLE TO MAKE NEEDS K NOWN CLEARLY. HE IS IN GOOD SPIRITS. O2 WEANED DOWN FROM 2L AT SHIFT CHANGE, TO 1L, THEN RA BY NOON. HIS SATURATIONS HAVE MAINTAINED IN THE MID-90'S SINCE. HE HAS TAKEN ALL MEALS SITTING IN THE CHAIR. IV LEVAQUIN INFUSING AT THIS TIME, IV REMDESIVIR FINAL DOSE DUE YET THIS SHIFT. IV SITE IS PATENT, ET INFUSING WITHOUT CONCERN.
[2020-10-31] MEDS: REMDESIVIR 100mg in NORMAL SALINE 250ML X 4 DAYS IV SCH (17:43)
[2020-10-31 19:34] VITALS: BP 109/70
[2020-10-31] MEDS: MELATONIN 3 MG TABLET PO SCH (20:47)
[2020-10-31] MEDS: CITALOPRAM 10 MG TABLET. PO SCH (20:47)
--- NOTE | 2020-10-31 22:46 | NUR ---
Had to place patient on oxygen d/t oxygen sats dropping on room air.
[2020-11-01 06:34] VITALS: BP 111/74
[2020-11-01] MEDS: IPRATROPIUM/ALBUTEROL 20/100mcg/INH INHALER. INH SCH (07:53)
[2020-11-01] MEDS: CETIRIZINE HCL 10 MG TABLET PO PRN (07:54)
[2020-11-01] MEDS: ASCORBIC ACID 1,000 MG TABLET PO SCH (07:54)
[2020-11-01] MEDS: ZINC SULFATE 220 MG CAPSULE. PO SCH (07:54)
[2020-11-01] MEDS: PANTOPRAZOLE IV 40 MG VIAL. IVP SCH (07:55)
[2020-11-01] MEDS: DEXAMETHASONE SOD PHOS 10 MG/ML VIAL. IVP SCH (07:55)
[2020-11-01] MEDS ORDERED: LACTOBACILLUS RHAMNOSUS GG 1 CAPSULE. PO SCH (09:00)
--- NOTE | 2020-11-01 09:50 | DS ---
ATTENDING PHYSICIAN: Dr. Cordero and Dr. Chisholm. FINAL DISCHARGE DIAGNOSES: 1. Bilateral COVID-19 pneumonia. 2. Acute hypoxemic respiratory failure, resolved. 3. Hypoxemia, improved. 4. History of depression with anxiety. HISTORY OF PRESENT ILLNESS: The patient is a 40-year-old gentleman, otherwise healthy, he has not had his vaccines, he presented to the ED with increasing shortness of breath. Chest x-ray evidence of atypical pneumonia. He tested positive for COVID-19 coronavirus. He was admitted for further treatment and evaluation. PHYSICAL EXAMINATION: Please see the dictated note. PERTINENT LABORATORY AND X-RAY STUDIES: His admission hemoglobin was 14.7 g/dL with a white count of 9800. Electrolytes showed a normal sodium, potassium, creatinine is 1.0 mg %. Nonfasting blood sugar 130. Cardiac enzymes negative for coronary ischemia. Serology was reported positive for coronavirus. D-dimer 0.53. COURSE IN THE HOSPITAL: The patient was admitted to our ICU. He did require significant amount of high flow oxygen up to 12 liters by high-flow cannula before getting better. He did receive a 5-day course of remdesivir along with Decadron and p.r.n. meds. By the 6th hospital day, we were able to do exercise oximetry, he had adequate saturation and did not require any supplemental oxygen. Therefore, he is discharged home with no change in the home meds. He should continue his Zyrtec as needed, Lexapro 15 mg daily, melatonin, and Protonix 40 mg daily. I suggested he call Dr. Miller's office for followup visit as scheduled. He was discharged then from our hospital in stable condition with explicit drug and followup care. Total discharge time spent is 38 minutes. KALEN/[facility] [place] DR: Kris TID: [id number] CC: CHASE MILLER
--- NOTE | 2020-11-01 10:42 | NUR ---
pt discharged this shift at approx via wheelchair. picked up the pt at front door of hospital. Spoke to the in depth regarding plan of care and follow ups when discharged. Encouraged the to call Dr Mau solorio today and let them know that the pt was here and why so they could get a follow up. Pt did 6 min walk and did not require home 02. Pt given dioscharge information and education regarding hospital stay and after care. Pt denies any pain or discomfort this shift and states that he is ready to go home.
[2020-11-04] MEDS ORDERED: CHOLECALCIFEROL (VITAMIN D3) 50,000 UNIT CAPSULE PO SCH (09:00)
== END 2020-11-01 11:02 | disposition home or self-care (01) | DRG 177 ==
LOC: ER 10:21 → ICU 12:36
PROVIDERS: ADMIT Internal Medicine; ATTEND Internal Medicine
PROC: XW033E5 Introduction of Remdesivir Anti-infective into Peripheral Vein, Percutaneous Approach, New Technology Group 5 (ICD-10-PCS; principal; 2020-10-27)
PROC: 5A0935A Assistance with Respiratory Ventilation, Less than 24 Consecutive Hours, High Flow/Velocity Cannula (ICD-10-PCS; 2020-10-27)
PROC: 5A0935A Assistance with Respiratory Ventilation, Less than 24 Consecutive Hours, High Flow/Velocity Cannula (ICD-10-PCS; 2020-10-28)
DX: U07.1 COVID-19 (principal); J96.01 Acute respiratory failure with hypoxia; J12.82 Pneumonia due to coronavirus disease 2019; D69.6 Thrombocytopenia, unspecified; K44.9 Diaphragmatic hernia without obstruction or gangrene; F41.8 Other specified anxiety disorders; Z88.1 Allergy status to other antibiotic agents; Z79.899 Other long term (current) drug therapy
CPT/HCPCS: 36415; 71275; 80053; 83605; 84484; 85025; 85027; 85379; 87040; 93005; 94618; 96361; 96365; 96366; 96375; C9113; J1100; J1650; J1956; J7050; Q9967; 99285-25; J7030